=== PATIENT | female | born 1930 | race Caucasian/White ===

== ENCOUNTER 2018-02-19 11:39 | Emergency (ER) | payer OTHER, MEDICARE ==
[~2018-02-19] VITALS: Ht 167.6 cm; Wt 64.2 kg
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
[2018-02-19] MEDS ORDERED: ONDANSETRON HCL/PF 4 MG/2 ML VIAL IV ONE (12:00)
[2018-02-19] MEDS ORDERED: MORPHINE SULFATE INJ 2 MG/ML DISP.SYRIN IV ONE (12:00)
[2018-02-19] MEDS ORDERED: TDAP [DIPH/PERTUSSIS/TET] 0.5 ML VIAL IM ONE ×2 (12:00→12:29)
[2018-02-19] MEDS ORDERED: IV NS 0.9% 500 ML BAG IV ONE ×2 (12:00→14:00)
--- NOTE | 2018-02-19 12:10 | NUR ---
WOUND CARE IN PROGRESS. DR. JOINER IS AT THE BEDSIDE. EXPOSED TENDONS BILATERAL HANDS.
--- NOTE | 2018-02-19 12:18 | NUR ---
PT IS GOING TO CT VIA [facility]
[2018-02-19] MEDS ORDERED: MORPHINE SULFATE INJ 4 MG/ML DISP.SYRIN ONE (12:29)
[2018-02-19] MEDS ORDERED: ONDANSETRON HCL/PF 4 MG/2 ML VIAL ONE (12:29)
--- NOTE | 2018-02-19 12:33 | NUR ---
PT'S DAUGHTER IS AT THE BEDSIDE.
--- NOTE | 2018-02-19 12:33 | NUR ---
PER PT'S DAUGHTER, PT HAS A "PACEMAKER AND A SPINAL DEFIBRILATOR".
--- NOTE | 2018-02-19 12:45 | NUR ---
20G IV STARTED IN RAC WHILE IN CT. BLOOD WAS DRAWN AND SENT TO LAB.
--- NOTE | 2018-02-19 12:53 | NUR ---
PT REC'D MEDICATION ORDERED.
--- NOTE | 2018-02-19 12:55 | NUR ---
PT RETURNED FROM CT.
[2018-02-19 12:57] LABS: BASOPHILS # (AUTO) 0.1 /CMM (0.0-0.2); BASOPHILS % (AUTO) 0.9 % (0.0-2.0); EOSINOPHILS % (AUTO) 3.6 % (0.0-6.0); HEMATOCRIT 32 % (33-45); HEMOGLOBIN 10.7 g/dL (11.5-14.8); LYMPHOCYTES # (AUTO) 0.9 /CMM (0.8-4.8); LYMPHOCYTES % (AUTO) 16.1 % (20.0-44.0); MEAN CORPUSCULAR HGB CONC 34 g/dl (31.0-36.0); MEAN CORPUSCULAR VOLUME 79 fL (82-100); MONOCYTES # (AUTO) 0.3 /CMM (0.1-1.30); MONOCYTES % (AUTO) 6.1 % (2.0-12.0); NEUTROPHILS # (AUTO) 4.1 /CMM (1.8-8.9); NEUTROPHILS % (AUTO) 73.3 % (43.0-81.0); PLATELET COUNT (AUTO) 204 /CMM (150-450); RDW COEFFICIENT OF VARIATION 15.8 (11.5-15.0); RED BLOOD CELL COUNT(AUTO) 4.03 MIL/uL (4.0-5.2); WHITE BLOOD COUNT (AUTO) 5.6 K/uL (4.3-11.0)
--- NOTE | 2018-02-19 13:00 | NUR ---
C-COLLAR BEING PLACED ON PT. PT REFUSED. MD AWARE. PT THREW COLLAR ON FLOOR.
[2018-02-19 13:04] LABS: CARBON DIOXIDE 25 mmol/L (21-32); CHLORIDE 100 mmol/L (98-107); CREATININE 1.1 mg/dL (0.6-1.3); GLUCOSE 106 mg/dL (74-106); POTASSIUM 4.8 mmol/L (3.5-5.1); SODIUM SERUM 133 mmol/L (136-145); UREA NITROGEN, BLOOD 29 mg/dL (7-18)
[2018-02-19 13:10] LABS: ALANINE AMINOTRANSFERASE 29 U/L (12-78); ALBUMIN 3.5 g/dL (3.4-5.0); ALKALINE PHOSPHATASE 89 U/L (46-116); ASPARTATE AMINOTRANSFERASE 28 U/L (15-37); BILIRUBIN,TOTAL 0.2 mg/dL (0.2-1.0); TOTAL PROTEIN, SERUM 7.3 g/dL (6.4-8.2)
[2018-02-19 13:12] LABS: INR 0.98 (0.87-1.13)
--- NOTE | 2018-02-19 13:21 | NUR ---
PT GOING TO [facility]A.
[2018-02-19] MEDS ORDERED: IOHEXOL-350 100 ML VIAL IV ONE (13:24)
[2018-02-19] MEDS ORDERED: CT SWABBABLE VALVE TRANS SET 1 EA INFUS.SET MC ONE (13:24)
[2018-02-19] MEDS ORDERED: IV NS 0.9% 500 ML IV ONE (13:24)
[2018-02-19] MEDS ORDERED: CEFAZOLIN 1 GM in IV D5W 50 ML IV ONE (13:30)
--- NOTE | 2018-02-19 13:42 | NUR ---
PT RETURNED FROM [facility]. C-COLLAR BEING APPLIED. ANCEF 1GM BEING INFUSED VIA RAC 20G.
--- NOTE | 2018-02-19 13:43 | NUR ---
C-COLLAR PLACED ON PT AND PT REMOVED C-COLLAR.
--- NOTE | 2018-02-19 14:06 | NUR ---
PT PULLED OFF C-COLLAR AND REFUSED TO HAVE IT PUT BACK ON. DR JOINER AWARE.
--- NOTE | 2018-02-19 14:10 | NUR ---
18G IV LAC INFILTRATED. IV removed. Catheter intact and site benign. Pressure and 4x4 applied to site. No bleeding noted.
--- NOTE | 2018-02-19 14:23 | NUR ---
PRESENTED CASE TO [facility] FOR HIGHER LEVEL OF CARE TRANSFER. ED CHARGE NURSE STATES SHE WILL PRESENT CASE, BUT NO HAND SURGEON IS ON DUTY
--- NOTE | 2018-02-19 14:23 | NUR ---
DR. JOINER IS AT THE BEDSIDE EVALUATING THE PT'S HEAD WOUNDS.
--- NOTE | 2018-02-19 14:38 | NUR ---
CALLED [facility], WAS IN MIDDLE OF PRESENTING PT WHEN I WAS INFORMED JUAN BOLIVAR ACCEPTED PT
--- NOTE | 2018-02-19 14:42 | NUR ---
[facility] called for ALS transport, eta 10-15 min
--- NOTE | 2018-02-19 14:42 | NUR ---
CALLED [facility] FOR TRANSPORT TO [facility], ETA 15 MIN, TRIP #[id number]
--- NOTE | 2018-02-19 14:46 | NUR ---
REPORT GIVEN TO GERTRUDIS MENENDEZ AT [facility].
[2018-02-19 14:49] VITALS: BP 149/69
--- NOTE | 2018-02-19 14:56 | NUR ---
REPORT GIVEN TO STOREHOUSE CLERK FOR [facility].
--- NOTE | 2018-02-19 14:57 | NUR ---
PT TRANSFERRED TO [place] BY [facility]. VSS. PT'S DAUGHTER IS GOING WITH THE PT. ACCEPTING MD AT [place] IS DR. OLMSTEAD
== END 2018-02-19 15:15 | disposition short-term general hospital (02) ==
LOC: ER 11:41
DX: S52.602A Unspecified fracture of lower end of left ulna, initial encounter for closed fracture (principal); S12.9XXA Fracture of neck, unspecified, initial encounter; S60.511A Abrasion of right hand, initial encounter; S20.212A Contusion of left front wall of thorax, initial encounter; S30.1XXA Contusion of abdominal wall, initial encounter; S61.401A Unspecified open wound of right hand, initial encounter; S61.402A Unspecified open wound of left hand, initial encounter; S80.11XA Contusion of right lower leg, initial encounter; S51.802A Unspecified open wound of left forearm, initial encounter; I10 Essential (primary) hypertension; I71.4 Abdominal aortic aneurysm, without rupture; M50.30 Other cervical disc degeneration, unspecified cervical region; Z87.890 Personal history of sex reassignment; V43.52XA Car driver injured in collision with other type car in traffic accident, initial encounter; Y93.89 Activity, other specified; Y92.410 Unspecified street and highway as the place of occurrence of the external cause; Y99.8 Other external cause status
CPT/HCPCS: 36415; 70450-TC; 71250-TC; 72125-TC; 73090-TC; 73110; 73130-TC; 80053-TC; 85025-TC; 85610-TC; 85730-TC; 90715; A4606; A6402; A6403; J0690; J2270; J2405; J7040; J7060; L0172; Q9967; Z7610